=== PATIENT | male | born 1970 | race African-American/Black ===

== ENCOUNTER 2016-10-25 12:45 | Inpatient (IN) | payer BC ==
[~2016-10-25] VITALS: Ht 165.1 cm; Wt 68.6 kg
[~2016-10-25 12:45] MED LIST: ALBUTEROL IH; NOHOMEMEDS
[2016-10-25 15:16] VITALS: BP 138/90
[2016-10-25 23:33] VITALS: BP 132/78
[2016-10-26 05:30] VITALS: BP 134/81
[2016-10-26 05:58] LABS: HEMATOCRIT 30.2 % (38.0-50.0); MCH 28.6 PG (29.0-34.0); MCHC 32.5 G/DL (30.0-36.0); MEAN PLAT.VOLUME 8.6 uM^3 (9.0-12.4); PLATELET COUNT 781 K/uL (156-360); RBC DIS.WIDTH-CV 13.1 % (11.8-14.6); RBC DIS.WIDTH-SD 42.1 % (39-53); RED BLOOD COUNT 3.43 M/uL (4.00-5.50); WHITE BLOOD COUNT 8.1 K/uL (4.1-10.2)
[2016-10-26 06:29] LABS: ALKALINE PHOSPHATASE 108 IU/L (3-129); ANION GAP 8 MEQ/L (2-14); CHLORIDE 99 MEQ/L (99-109); GFR ESTIMATE (CALCULATED) > 59 mL/min/; GLUCOSE 108 mg/dL (70-99); POTASSIUM 4.1 MEQ/L (3.7-5.4); SAMPLE HEMOLYSIS CHECK 0; SAMPLE ICTERIC CHECK 0; SAMPLE LIPEMIA CHECK 0; SODIUM 135 MEQ/L (136-147); TOTAL BILIRUBIN 0.4 MG/DL (0.0-1.0); UREA NITROGEN (BUN) 15 mg/dL (9-23)
[2016-10-26 15:18] VITALS: BP 133/74
[2016-10-27 05:48] VITALS: BP 127/80
[2016-10-27] MEDS ORDERED: BACIGUENT28.4 GM PO (13:45)
[2016-10-27] MEDS ORDERED: LOVENOX30 MG/0.3 SC (13:46)
[2016-10-27] MEDS ORDERED: DULCOLAX10 MG PR (13:46)
[2016-10-27] MEDS ORDERED: PEPCID20 MG PO (13:47)
[2016-10-27] MEDS ORDERED: FOLIC ACID1 MG PO (13:47)
[2016-10-27] MEDS ORDERED: DUONEB 2.5-0.5 M3 ML AEROSOL (13:49)
[2016-10-27] MEDS ORDERED: GABAPENTIN100 MG PO (13:49)
[2016-10-27] MEDS ORDERED: CULTURELLE1 EAC1 PO (13:51)
[2016-10-27] MEDS ORDERED: ANTI-FUNGAL71 GM TP (13:52)
[2016-10-27] MEDS ORDERED: ATIVAN0.5 MG PO (13:52)
[2016-10-27] MEDS ORDERED: OXAYDO5 MG PO (13:53)
[2016-10-27] MEDS ORDERED: OXYCODONE HCL10 MG PO (13:53)
[2016-10-27] MEDS ORDERED: PROBIOTIC250 MG PO (13:55)
[2016-10-27] MEDS ORDERED: OXYCONTIN10 MG PO (13:55)
[2016-10-27] MEDS ORDERED: SENNA-DOCUSATE1 EAC1 PO (13:56)
[2016-10-27] MEDS ORDERED: 24HOUR ALLERGY10 MG PO (13:57)
[2016-10-27] MEDS ORDERED: ADVAIR 500/501 DISK IH (13:59)
[2016-10-27] MEDS ORDERED: ALLERGY RELIE15.8 ML BOTH NARES (13:59)
[2016-10-27] MEDS ORDERED: ATARAX,VISTARIL25 MG PO (14:00)
[2016-10-27] MEDS ORDERED: PROTONIX40 MG PO (14:00)
[2016-10-27 15:43] VITALS: BP 122/87
[2016-10-28 05:03] VITALS: BP 143/88
[2016-10-28 15:10] VITALS: BP 145/74
[2016-10-29 05:27] LABS: HEMATOCRIT 29.4 % (38.0-50.0); MCH 28.7 PG (29.0-34.0); MCV 89.6 FL (86-99); RBC DIS.WIDTH-CV 13.2 % (11.8-14.6); RBC DIS.WIDTH-SD 43.2 % (39-53); RED BLOOD COUNT 3.28 M/uL (4.00-5.50)
[2016-10-29 05:42] VITALS: BP 134/80
[2016-10-29 05:44] LABS: WHITE BLOOD COUNT 4.6 K/uL (4.1-10.2)
[2016-10-29 06:01] LABS: ABS NEUTROPHIL COUNT 2.7; ATYPICAL LYMPHOCYTE 3.5 %; EOSINOPHIL ABS CT 0.2; EOSINOPHILS 3.5 % (0-5.0); HEMATOLOGY COMMENT 1 SN; INSTRUMENT ABS NEUTROPHIL CT 2.7 K/uL; LYMPHOCYTES 25.7 % (15.0-45.0); MEAN PLAT.VOLUME 8.7 uM^3 (9.0-12.4); PLAT.SUFFICIENCY INCREASED; SEG.NEUTROPHILS 58.4 % (46.0-76.0); SMUDGE CELLS 7.1
[2016-10-29 06:03] LABS: PLATELET COUNT UNABLE TO REPORT K/uL (156-360)
[2016-10-29 15:37] VITALS: BP 128/80
[2016-10-30 05:31] VITALS: BP 124/74
[2016-10-30 16:01] VITALS: BP 147/79
[2016-10-31 05:29] VITALS: BP 110/61
[2016-10-31 08:31] VITALS: BP 128/77
[2016-10-31 15:59] VITALS: BP 132/72
[2016-11-01 05:00] LABS: HEMATOCRIT 29.4 % (38.0-50.0); MCH 28.5 PG (29.0-34.0); MCHC 32.7 G/DL (30.0-36.0); MCV 87.2 FL (86-99); MEAN PLAT.VOLUME 8.9 uM^3 (9.0-12.4); PLATELET COUNT 356 K/uL (156-360); RBC DIS.WIDTH-CV 12.7 % (11.8-14.6); RBC DIS.WIDTH-SD 40.4 % (39-53); RED BLOOD COUNT 3.37 M/uL (4.00-5.50); WHITE BLOOD COUNT 5.5 K/uL (4.1-10.2)
[2016-11-01 05:14] LABS: CHLORIDE 101 mEq/L (99-109); POTASSIUM 3.9 mEq/L (3.7-5.4); SODIUM 136 mEq/L (136-147)
[2016-11-01 05:16] LABS: GLUCOSE 100 mg/dL (70-99)
[2016-11-01 05:18] LABS: ANION GAP 10 MEQ/L (2-14); TOTAL BILIRUBIN 0.3 mg/dL (0.0-1.0)
[2016-11-01 05:20] LABS: ALKALINE PHOSPHATASE 114 IU/L (3-129); GFR ESTIMATE (CALCULATED) > 59 mL/min/
[2016-11-01 05:21] LABS: UREA NITROGEN (BUN) 9 mg/dL (9-23)
[2016-11-01 05:42] VITALS: BP 138/78
[2016-11-01 07:12] VITALS: BP 135/86
[2016-11-01 11:58] LABS: BLOOD LEAD SPECIMEN VENOUS
[2016-11-01] MEDS ORDERED: THERAGRAN1 TABLET PO (14:34)
[2016-11-01] MEDS ORDERED: 24HOUR ALLERGY10 MG PO (14:34)
[2016-11-01] MEDS ORDERED: TAMSULOSIN HCL0.4 MG PO (14:34)
[2016-11-01] MEDS ORDERED: ADVAIR 500/501 DISK IH (14:34)
[2016-11-01] MEDS ORDERED: ATARAX,VISTARIL25 MG PO (14:34)
[2016-11-01] MEDS ORDERED: FOLIC ACID1 MG PO (14:34)
[2016-11-01] MEDS ORDERED: ALLERGY RELIE15.8 ML BOTH NARES (14:34)
[2016-11-01] MEDS ORDERED: PEPCID20 MG PO (14:34)
[2016-11-01] MEDS ORDERED: VITAMIN D31000 UNI2 PO (14:34)
[2016-11-01] MEDS ORDERED: CULTURELLE1 EAC1 PO (14:34)
[2016-11-01] MEDS ORDERED: POLYETHYLENE GL17 GM PO (14:34)
[2016-11-01] MEDS ORDERED: OXAYDO5 MG PO (14:34)
[2016-11-01] MEDS ORDERED: ASCORBIC ACID500 M3 PO (14:34)
[2016-11-01] MEDS ORDERED: SENNA-DOCUSATE1 EAC1 PO (14:34)
[2016-11-01] MEDS ORDERED: GABAPENTIN100 MG PO (14:34)
[2016-11-01] MEDS ORDERED: PROBIOTIC250 MG PO (14:34)
[2016-11-01] MEDS ORDERED: ECOTRIN325 MG PO (14:40)
[2016-11-01 15:50] VITALS: BP 148/81
[2016-11-02 05:06] VITALS: BP 136/86
== END 2016-11-02 15:13 | DRG 945 ==
LOC: 3WEST 12:45
PROVIDERS: Physical Medicine & Rehabilitation Pain Medicine; Physician Assistant Surgical; Specialist
PROC: F07M0ZZ Range of Motion and Joint Mobility Treatment of Musculoskeletal System - Whole Body (ICD-10-PCS; principal; 2016-10-25)
DX: S31.14 Puncture wound of abdominal wall with foreign body without penetration into peritoneal cavity (principal); D62 Acute posthemorrhagic anemia; K59.2 Neurogenic bowel, not elsewhere classified; E87.1 Hypo-osmolality and hyponatremia; S21.94 Puncture wound with foreign body of unspecified part of thorax; R33.9 Retention of urine, unspecified; N31.9 Neuromuscular dysfunction of bladder, unspecified; R15.9 Full incontinence of feces; K59.03 Drug induced constipation; Z88.0 Allergy status to penicillin; J45.909 Unspecified asthma, uncomplicated; S41.14 Puncture wound with foreign body of upper arm; S32.49 Other specified fracture of acetabulum; S81.8 Open wound of lower leg; S31.04 Puncture wound with foreign body of lower back and pelvis; S32.059S Unspecified fracture of fifth lumbar vertebra, sequela; E87.6 Hypokalemia; S32.049S Unspecified fracture of fourth lumbar vertebra, sequela; G89.18 Other acute postprocedural pain; R01.1 Cardiac murmur, unspecified; D47.3 Essential (hemorrhagic) thrombocythemia; R00.0 Tachycardia, unspecified; K64.8 Other hemorrhoids; S02.2XXS Fracture of nasal bones, sequela; Z83.3 Family history of diabetes mellitus; Z82.49 Family history of ischemic heart disease and other diseases of the circulatory system
CPT/HCPCS: 72192; 73502; 74000; 76376; 80053; 83655; 85025; 85027; 87493; 94640; 94640 76; 97110 GO; 97530 GP; 99202; J1650; Q0177

== ENCOUNTER → 2017-09-04 | Outpatient (CLI) | payer BC, OTHER ==
[~2017-09-04] MED LIST changes: +24HOUR ALLERGY10 MG PO; +ADVAIR 500/501 DISK IH; +ALLERGY RELIE15.8 ML BOTH NARES; +ANTI-FUNGAL71 GM TP; +ASCORBIC ACID500 M3 PO; +ATARAX,VISTARIL25 MG PO; +ATIVAN0.5 MG PO; +BACIGUENT28.4 GM PO; +CULTURELLE1 EAC1 PO; +DULCOLAX10 MG PR; +DUONEB 2.5-0.5 M3 ML AEROSOL; +ECOTRIN325 MG PO; +FOLIC ACID1 MG PO; +GABAPENTIN100 MG PO; +LOVENOX30 MG/0.3 SC; +OXAYDO5 MG PO; +OXYCODONE HCL10 MG PO; +OXYCONTIN10 MG PO; +PEPCID20 MG PO; +POLYETHYLENE GL17 GM PO; +PROBIOTIC250 MG PO; +PROTONIX40 MG PO; +SENNA-DOCUSATE1 EAC1 PO; +TAMSULOSIN HCL0.4 MG PO; +THERAGRAN1 TABLET PO; +VITAMIN D31000 UNI2 PO
== END | disposition home or self-care (01) ==
LOC: RAD 13:42
PROC: 3E0R3KZ Introduction of Other Diagnostic Substance into Spinal Canal, Percutaneous Approach (ICD-10-PCS; principal; 2017-09-04)
DX: G54.4 Lumbosacral root disorders, not elsewhere classified (principal); M48.07 Spinal stenosis, lumbosacral region; M89.38 Hypertrophy of bone, other site; M89.8X8 Other specified disorders of bone, other site; M51.27 Other intervertebral disc displacement, lumbosacral region; Z98.890 Other specified postprocedural states
CPT/HCPCS: 62304; 72132

== ENCOUNTER 2018-04-17 10:30 | Day surgery (SDC) | payer BC, OTHER ==
[~2018-04-17] VITALS: Ht 167.6 cm; Wt 78.5 kg
[2018-04-17 11:36] LABS: HEMATOCRIT 37.7 % (38.0-50.0); HEMOGLOBIN 13.1 G/DL (12.5-16.6); MCV 85.7 FL (86-99)
[2018-04-17 11:39] VITALS: BP 123/81
[2018-04-17 11:48] LABS: CHLORIDE 105 mEq/L (99-109)
[2018-04-17 11:49] LABS: POTASSIUM 3.9 mEq/L (3.7-5.4); SODIUM 139 mEq/L (136-147)
[2018-04-17 11:50] LABS: GLUCOSE 125 mg/dL (70-99)
[2018-04-17 11:54] LABS: CREATININE 0.8 mg/dL (0.6-1.3); GFR ESTIMATE (CALCULATED) > 59 mL/min/ (58.99-99999)
[2018-04-17 11:55] LABS: UREA NITROGEN (BUN) 9 mg/dL (9-23)
[2018-04-17] MEDS ORDERED: OXYCODONE HCL5 MG PO (15:53)
[2018-04-17 16:38] VITALS: BP 140/84
[2018-04-17 17:46] VITALS: BP 153/83
== END 2018-04-17 17:55 | disposition home or self-care (01) ==
LOC: SDC 10:30
PROVIDERS: Anesthesiology
DX: K43.2 Incisional hernia without obstruction or gangrene (principal); K66.0 Peritoneal adhesions (postprocedural) (postinfection); J45.909 Unspecified asthma, uncomplicated; Z88.0 Allergy status to penicillin; G83.4 Cauda equina syndrome; K21.9 Gastro-esophageal reflux disease without esophagitis
CPT/HCPCS: 80048; 85014; 85018; 93005; C1781; J0131; J1100; J1170; J1885; J2250; J2405; J2710; J3010; J7643; S0020